=== PATIENT | female | born 1930 | race Caucasian/White ===

== ENCOUNTER 2017-11-07 13:17 | Inpatient (IN) | payer OTHER, SELFPAY ==
[~2017-11-07] VITALS: Ht 154.9 cm; Wt 47.6 kg
[~2017-11-07 13:17] MED LIST: ACYC800 PO; AMLO5 PO; ASPI81CH PO; ASPI81EC PO; Celebrex200 MG PO; DIAZ5 PO; DOCU100 PO; ESTR1 PO; GABA300 PO; HIGH BP MED; HYDACE10 PO; HYDACE10B PO; LISHYD1012 PO; LISHYD2012 PO; LISI5 PO; MAGOXI400 PO; METO25ER PO; MORP30ER PO; Norco 10-325 T1 EACH PO; OMEP20ER PO; ONDA4 PO; Prozac40 MG PO; ROSU10TA PO; ROSU5 PO; SENN187 PO; SODCHL1 PO; Xanax0.5 MG PO; ZOLP10 PO; Zithromax250 MG PO; Zofran Odt4 MG SL; Zofran4 MG PO
[2017-11-07 14:25] LABS: BASOPHILS ABSOLUTE AUTO 0.05 K/mm3 (0.00-0.23); BASOPHILS PERCENT AUTO 1 % (0-2); EOSINOPHILS ABSOLUTE AUTO 0.19 K/mm3 (0.00-0.68); EOSINOPHILS PERCENT AUTO 2 % (0-6); Hematocrit 38.4 % (33.0-51.0); Hemoglobin 12.7 g/dL (11.5-16.0); IMMATURE GRAN ABSOLUTE AUTO 0.04 K/mm3 (0.00-0.10); IMMATURE GRAN PERCENT AUTO 0 % (0-1); LYMPHOCYTES ABSOLUTE AUTO 3.74 K/mm3 (0.84-5.20); LYMPHOCYTES PERCENT AUTO 37 % (21-46); MONOCYTES PERCENT AUTO 9 % (4-13); Mean Corpuscular HGB 27.8 pg (26.0-34.0); Mean Corpuscular HGB Conc 33.1 g/dL (31.5-36.5); Mean Corpuscular Volume 84 fL (80-100); NEUTROPHILS ABSOLUTE AUTO 5.14 K/mm3 (1.96-9.15); NEUTROPHILS PERCENT AUTO 51 % (41-73); RDW Coefficient Variation 17.7 % (11.7-14.2); RDW Standard Deviation 54.2 fL (35.1-46.3); Red Blood Cell Count 4.57 M/mm3 (3.80-5.20); White Blood Cell Count 10.06 K/mm3 (4.00-11.30)
[2017-11-07 14:27] LABS: Mean Platelet Volume 10.6 fL (9.1-12.4); Platelet Count 313 K/mm3 (150-400)
[2017-11-07 14:31] LABS: Albumin, Blood 3.5 g/dL (3.4-5.0); Albumin/Globulin Ratio 0.9 (0.8-1.8); Bilirubin, Total 0.6 mg/dL (0.1-1.0); Bun/Creatinine Ratio 19.9 (12.0-20.0); Calcium, Blood 8.5 mg/dL (8.5-10.1); Creatinine, Blood 2.46 mg/dL (0.40-1.00); Globulin, Blood 3.8 g/dL (2.2-4.0); Potassium, Blood 3.4 mmol/L (3.5-5.5); Total Protein, Blood 7.3 g/dL (6.4-8.2)
[2017-11-07 14:54] LABS: Source, Urine Clean Catch
[2017-11-07 15:00] LABS: Bilirubin, Urine Neg (Neg); Blood, Urine 2+ (Neg); Glucose Qualitative, Urine Neg (Neg); Ketones, Urine Neg (Neg); Leukocyte Esterase, Urine 3+ (Neg); Nitrite, Urine Neg (Neg); Protein, Urine 3+ (Neg); Urobilinogen, Urine NORM (Normal)
[2017-11-07 15:06] LABS: Color, Urine Yellow (P-Yellow)
[2017-11-07 15:07] LABS: Appearance, Urine Hazy (Clear); White Blood Cells, Urine TNTC /hpf (0-5)
[2017-11-07 15:08] LABS: Bacteria Mod /hpf; Squamous Epithelial Cells Few /hpf (Few)
[2017-11-07 15:34] LABS: Influenza A Negative (NEGATIVE); Influenza B Negative (NEGATIVE)
[2017-11-08 05:47] LABS: BASOPHILS ABSOLUTE AUTO 0.05 K/mm3 (0.00-0.23); BASOPHILS PERCENT AUTO 1 % (0-2); EOSINOPHILS ABSOLUTE AUTO 0.57 K/mm3 (0.00-0.68); EOSINOPHILS PERCENT AUTO 8 % (0-6); Hematocrit 34.9 % (33.0-51.0); Hemoglobin 11.8 g/dL (11.5-16.0); IMMATURE GRAN ABSOLUTE AUTO 0.02 K/mm3 (0.00-0.10); IMMATURE GRAN PERCENT AUTO 0 % (0-1); LYMPHOCYTES ABSOLUTE AUTO 2.47 K/mm3 (0.84-5.20); LYMPHOCYTES PERCENT AUTO 36 % (21-46); MONOCYTES ABSOLUTE AUTO 0.56 K/mm3 (0.16-1.47); MONOCYTES PERCENT AUTO 8 % (4-13); Mean Corpuscular HGB 27.6 pg (26.0-34.0); Mean Corpuscular HGB Conc 33.8 g/dL (31.5-36.5); Mean Corpuscular Volume 82 fL (80-100); Mean Platelet Volume 10.2 fL (9.1-12.4); NEUTROPHILS ABSOLUTE AUTO 3.14 K/mm3 (1.96-9.15); NEUTROPHILS PERCENT AUTO 46 % (41-73); Platelet Count 316 K/mm3 (150-400); RDW Coefficient Variation 16.9 % (11.7-14.2); RDW Standard Deviation 49.9 fL (35.1-46.3); Red Blood Cell Count 4.28 M/mm3 (3.80-5.20); White Blood Cell Count 6.81 K/mm3 (4.00-11.30)
[2017-11-08 06:05] LABS: Alanine Aminotransfer (ALT/SGP 17 U/L (12-78); Albumin, Blood 2.9 g/dL (3.4-5.0); Albumin/Globulin Ratio 0.9 (0.8-1.8); Alk Phos 147 U/L (50-136); Anion Gap 9 mmol/L (6-16); Aspartate Aminotrans (AST/SGOT 19 U/L (12-37); Bilirubin, Total 0.3 mg/dL (0.1-1.0); Blood Urea Nitrogen 28 mg/dL (8-24); Bun/Creatinine Ratio 31.5 (12.0-20.0); CO2, Blood 29 mmol/L (21-32); Calcium, Blood 8.4 mg/dL (8.5-10.1); Chloride, Blood 94 mmol/L (98-108); Creatinine, Blood 0.89 mg/dL (0.40-1.00); Globulin, Blood 3.3 g/dL (2.2-4.0); Glomerular Filtration Rate >60 (60-); Glucose, Blood 88 mg/dL (70-99); Potassium, Blood 3.3 mmol/L (3.5-5.5); Sodium, Blood 132 mmol/L (136-145); Total Protein, Blood 6.2 g/dL (6.4-8.2)
[2017-11-09 05:49] LABS: Anion Gap 4 mmol/L (6-16); Blood Urea Nitrogen 16 mg/dL (8-24); Bun/Creatinine Ratio 29.7 (12.0-20.0); CO2, Blood 31 mmol/L (21-32); Calcium, Blood 8.3 mg/dL (8.5-10.1); Chloride, Blood 95 mmol/L (98-108); Creatinine, Blood 0.54 mg/dL (0.40-1.00); Glomerular Filtration Rate >60 (60-); Glucose, Blood 89 mg/dL (70-99); Potassium, Blood 4.3 mmol/L (3.5-5.5); Sodium, Blood 130 mmol/L (136-145)
[2017-11-10] MEDS ORDERED: ALPR.25 PO (11:05)
[2017-11-10] MEDS ORDERED: LOSA25 PO (11:12)
[2017-11-10] MEDS ORDERED: SACC250C PO (11:13)
[2017-11-10] MEDS ORDERED: Amoxicillin500 MG PO (11:15)
[2018-07-21] MEDS ORDERED: LISI5 PO (12:38)
[2018-07-21] MEDS ORDERED: OMEPRAZOLE MAGN20 MG PO (12:39)
[2018-07-21] MEDS ORDERED: GABA300 PO (12:39)
[2018-07-24] MEDS ORDERED: Amox Tr-K Clv1 EAC2 PO (11:47)
== END 2017-11-10 11:53 | disposition home or self-care (01) | DRG 682 ==
LOC: ER 13:17 → MEDS 17:06 → ENPENDDIS 11-10 09:45 → MEDS 11-10 11:53
PROVIDERS: Emergency Medicine; Internal Medicine; Nurse Practitioner Family
DX: N17.9 Acute kidney failure, unspecified (principal); J69.0 Pneumonitis due to inhalation of food and vomit; E46 Unspecified protein-calorie malnutrition; G93.41 Metabolic encephalopathy; E22.2 Syndrome of inappropriate secretion of antidiuretic hormone; F11.20 Opioid dependence, uncomplicated; B02.23 Postherpetic polyneuropathy; N39.0 Urinary tract infection, site not specified; Z68.1 Body mass index [BMI] 19.9 or less, adult; E86.0 Dehydration; D63.8 Anemia in other chronic diseases classified elsewhere; G89.29 Other chronic pain; M19.90 Unspecified osteoarthritis, unspecified site; I10 Essential (primary) hypertension; R32 Unspecified urinary incontinence; Z66 Do not resuscitate; F41.9 Anxiety disorder, unspecified; F32.9 Major depressive disorder, single episode, unspecified; E87.6 Hypokalemia; B95.2 Enterococcus as the cause of diseases classified elsewhere; F03.90 Unspecified dementia, unspecified severity, without behavioral disturbance, psychotic disturbance, mood disturbance, and anxiety; G89.4 Chronic pain syndrome; Z85.72 Personal history of non-Hodgkin lymphomas; Z96.659 Presence of unspecified artificial knee joint; Z79.899 Other long term (current) drug therapy
CPT/HCPCS: 36415; 51702; 71046; 80048; 80053; 81001; 85025; 87077; 87086; 87186; 87804; 92610; 96361; 96365; 96367; 99285; G8996; G8997; J0290; J0696; J1644; J1956; J7030; J7120

== ENCOUNTER 2017-12-08 12:04 | Inpatient (IN) | payer OTHER, SELFPAY ==
[~2017-12-08] VITALS: Ht 162.6 cm; Wt 40.8 kg
[~2017-12-08 12:04] MED LIST changes: +ALPR.25 PO; +Amoxicillin500 MG PO; +LOSA25 PO; +SACC250C PO
[2017-12-08 12:32] LABS: BASOPHILS ABSOLUTE AUTO 0.04 K/mm3 (0.00-0.23); BASOPHILS PERCENT AUTO 0 % (0-2); EOSINOPHILS ABSOLUTE AUTO 0.18 K/mm3 (0.00-0.68); EOSINOPHILS PERCENT AUTO 2 % (0-6); Hemoglobin 11.8 g/dL (11.5-16.0); IMMATURE GRAN ABSOLUTE AUTO 0.03 K/mm3 (0.00-0.10); IMMATURE GRAN PERCENT AUTO 0 % (0-1); LYMPHOCYTES ABSOLUTE AUTO 2.39 K/mm3 (0.84-5.20); LYMPHOCYTES PERCENT AUTO 21 % (21-46); MONOCYTES ABSOLUTE AUTO 0.89 K/mm3 (0.16-1.47); MONOCYTES PERCENT AUTO 8 % (4-13); Mean Corpuscular HGB 28.4 pg (26.0-34.0); Mean Corpuscular HGB Conc 33.7 g/dL (31.5-36.5); Mean Corpuscular Volume 84 fL (80-100); Mean Platelet Volume 9.8 fL (9.1-12.4); NEUTROPHILS PERCENT AUTO 69 % (41-73); Platelet Count 279 K/mm3 (150-400); RDW Coefficient Variation 16.4 % (11.7-14.2); RDW Standard Deviation 51.1 fL (35.1-46.3); Red Blood Cell Count 4.16 M/mm3 (3.80-5.20); White Blood Cell Count 11.33 K/mm3 (4.00-11.30)
[2017-12-08 12:44] LABS: International Normalized Ratio 1.02; Prothrombin Time Results 10.6 Sec (9.7-11.5)
[2017-12-08 12:45] LABS: Albumin, Blood 2.9 g/dL (3.4-5.0); Albumin/Globulin Ratio 0.7 (0.8-1.8); Bilirubin, Total 0.6 mg/dL (0.1-1.0); Bun/Creatinine Ratio 24.6 (12.0-20.0); Calcium, Blood 8.5 mg/dL (8.5-10.1); Creatinine, Blood 1.26 mg/dL (0.40-1.00); Potassium, Blood 3.4 mmol/L (3.5-5.5); Total Protein, Blood 6.9 g/dL (6.4-8.2)
[2017-12-08 17:21] LABS: Source, Urine Catheter
[2017-12-08 17:29] LABS: Appearance, Urine Clear (Clear); Bilirubin, Urine Neg (Neg); Blood, Urine Neg (Neg); Color, Urine Yellow (P-Yellow); Glucose Qualitative, Urine Neg (Neg); Ketones, Urine Neg (Neg); Leukocyte Esterase, Urine Neg (Neg); Nitrite, Urine Neg (Neg); Protein, Urine 2+ (Neg); Specific Gravity, Urine 1.015 (1.003-1.022); Urobilinogen, Urine NORM (Normal)
[2017-12-08 18:26] LABS: Red Blood Cells, Urine 0-2 /hpf (0-2); White Blood Cells, Urine 0-2 /hpf (0-5)
[2017-12-08 18:27] LABS: Bacteria Few /hpf; Hyaline Casts 0-2 /lpf (0-2); Squamous Epithelial Cells Rare /hpf (Few)
[2017-12-09 05:21] LABS: BASOPHILS ABSOLUTE AUTO 0.04 K/mm3 (0.00-0.23); BASOPHILS PERCENT AUTO 1 % (0-2); EOSINOPHILS ABSOLUTE AUTO 0.13 K/mm3 (0.00-0.68); EOSINOPHILS PERCENT AUTO 2 % (0-6); Hematocrit 32.2 % (33.0-51.0); Hemoglobin 10.7 g/dL (11.5-16.0); IMMATURE GRAN ABSOLUTE AUTO 0.04 K/mm3 (0.00-0.10); IMMATURE GRAN PERCENT AUTO 1 % (0-1); LYMPHOCYTES PERCENT AUTO 24 % (21-46); MONOCYTES ABSOLUTE AUTO 0.73 K/mm3 (0.16-1.47); MONOCYTES PERCENT AUTO 8 % (4-13); Mean Corpuscular HGB 28.3 pg (26.0-34.0); Mean Corpuscular HGB Conc 33.2 g/dL (31.5-36.5); Mean Corpuscular Volume 85 fL (80-100); Mean Platelet Volume 10.5 fL (9.1-12.4); NEUTROPHILS ABSOLUTE AUTO 5.83 K/mm3 (1.96-9.15); NEUTROPHILS PERCENT AUTO 66 % (41-73); Platelet Count 260 K/mm3 (150-400); RDW Standard Deviation 50.4 fL (35.1-46.3); Red Blood Cell Count 3.78 M/mm3 (3.80-5.20); White Blood Cell Count 8.87 K/mm3 (4.00-11.30)
[2017-12-09 05:52] LABS: Anion Gap 6 mmol/L (6-16); Blood Urea Nitrogen 22 mg/dL (8-24); Bun/Creatinine Ratio 32.5 (12.0-20.0); CO2, Blood 32 mmol/L (21-32); Calcium, Blood 8.6 mg/dL (8.5-10.1); Chloride, Blood 93 mmol/L (98-108); Creatinine, Blood 0.68 mg/dL (0.40-1.00); Glomerular Filtration Rate >60 (60-); Glucose, Blood 109 mg/dL (70-99); Potassium, Blood 3.5 mmol/L (3.5-5.5); Sodium, Blood 131 mmol/L (136-145)
[2017-12-10 04:26] LABS: BASOPHILS ABSOLUTE AUTO 0.01 K/mm3 (0.00-0.23); BASOPHILS PERCENT AUTO 0 % (0-2); EOSINOPHILS PERCENT AUTO 0 % (0-6); Hematocrit 28.2 % (33.0-51.0); Hemoglobin 9.3 g/dL (11.5-16.0); IMMATURE GRAN ABSOLUTE AUTO 0.03 K/mm3 (0.00-0.10); IMMATURE GRAN PERCENT AUTO 0 % (0-1); LYMPHOCYTES ABSOLUTE AUTO 1.87 K/mm3 (0.84-5.20); LYMPHOCYTES PERCENT AUTO 20 % (21-46); MONOCYTES ABSOLUTE AUTO 0.61 K/mm3 (0.16-1.47); MONOCYTES PERCENT AUTO 7 % (4-13); Mean Corpuscular HGB 28.4 pg (26.0-34.0); Mean Corpuscular Volume 86 fL (80-100); Mean Platelet Volume 9.7 fL (9.1-12.4); NEUTROPHILS ABSOLUTE AUTO 6.83 K/mm3 (1.96-9.15); NEUTROPHILS PERCENT AUTO 73 % (41-73); Platelet Count 244 K/mm3 (150-400); RDW Coefficient Variation 15.8 % (11.7-14.2); Red Blood Cell Count 3.27 M/mm3 (3.80-5.20); White Blood Cell Count 9.35 K/mm3 (4.00-11.30)
[2017-12-11 06:17] LABS: BASOPHILS ABSOLUTE AUTO 0.04 K/mm3 (0.00-0.23); BASOPHILS PERCENT AUTO 1 % (0-2); EOSINOPHILS ABSOLUTE AUTO 0.16 K/mm3 (0.00-0.68); EOSINOPHILS PERCENT AUTO 2 % (0-6); Hematocrit 26.6 % (33.0-51.0); IMMATURE GRAN ABSOLUTE AUTO 0.02 K/mm3 (0.00-0.10); IMMATURE GRAN PERCENT AUTO 0 % (0-1); LYMPHOCYTES ABSOLUTE AUTO 3.22 K/mm3 (0.84-5.20); LYMPHOCYTES PERCENT AUTO 43 % (21-46); MONOCYTES ABSOLUTE AUTO 0.68 K/mm3 (0.16-1.47); MONOCYTES PERCENT AUTO 9 % (4-13); Mean Corpuscular HGB 28.8 pg (26.0-34.0); Mean Corpuscular HGB Conc 33.8 g/dL (31.5-36.5); Mean Corpuscular Volume 85 fL (80-100); Mean Platelet Volume 9.7 fL (9.1-12.4); NEUTROPHILS ABSOLUTE AUTO 3.45 K/mm3 (1.96-9.15); NEUTROPHILS PERCENT AUTO 46 % (41-73); Platelet Count 274 K/mm3 (150-400); RDW Coefficient Variation 15.9 % (11.7-14.2); RDW Standard Deviation 49.7 fL (35.1-46.3); Red Blood Cell Count 3.12 M/mm3 (3.80-5.20); White Blood Cell Count 7.57 K/mm3 (4.00-11.30)
[2017-12-11 06:38] LABS: Anion Gap 6 mmol/L (6-16); Blood Urea Nitrogen 9 mg/dL (8-24); Bun/Creatinine Ratio 20.5 (12.0-20.0); CO2, Blood 31 mmol/L (21-32); Calcium, Blood 8.7 mg/dL (8.5-10.1); Chloride, Blood 94 mmol/L (98-108); Creatinine, Blood 0.44 mg/dL (0.40-1.00); Glomerular Filtration Rate >60 (60-); Glucose, Blood 91 mg/dL (70-99); Potassium, Blood 4.3 mmol/L (3.5-5.5); Sodium, Blood 131 mmol/L (136-145)
[2017-12-11] MEDS ORDERED: MORP30 PO (09:20)
[2017-12-11] MEDS ORDERED: MORP20L PO (09:22)
[2018-07-21] MEDS ORDERED: LISI5 PO (12:38)
[2018-07-21] MEDS ORDERED: GABA300 PO (12:39)
[2018-07-21] MEDS ORDERED: OMEPRAZOLE MAGN20 MG PO (12:39)
[2018-07-24] MEDS ORDERED: Amox Tr-K Clv1 EAC2 PO (11:47)
== END 2017-12-14 11:34 | DRG 480 ==
LOC: ER 12:04 → SURS 14:06
PROVIDERS: Internal Medicine; Orthopaedic Surgery
PROC: BQ14ZZZ Fluoroscopy of Left Femur (ICD-10-PCS; 2017-12-09)
PROC: 0QH704Z Insertion of Internal Fixation Device into Left Upper Femur, Open Approach (ICD-10-PCS; principal; 2017-12-09 07:15)
DX: S72.142A Displaced intertrochanteric fracture of left femur, initial encounter for closed fracture (principal); E43 Unspecified severe protein-calorie malnutrition; N17.9 Acute kidney failure, unspecified; E86.0 Dehydration; D64.9 Anemia, unspecified; F11.20 Opioid dependence, uncomplicated; E87.1 Hypo-osmolality and hyponatremia; Z68.1 Body mass index [BMI] 19.9 or less, adult; E87.6 Hypokalemia; W19.XXXA Unspecified fall, initial encounter; G89.4 Chronic pain syndrome; I10 Essential (primary) hypertension; F32.9 Major depressive disorder, single episode, unspecified; Z66 Do not resuscitate; M19.90 Unspecified osteoarthritis, unspecified site; E78.5 Hyperlipidemia, unspecified; Z79.899 Other long term (current) drug therapy; Z85.72 Personal history of non-Hodgkin lymphomas
CPT/HCPCS: 36415; 71045; 73502; 80048; 80053; 81001; 85025; 85610; 93005; 93010; 96361; 96374; 96375; 96376; 97110; 97116; 97163; 97165; 97530; 97535; 99285; C1713; C1769; G8978; G8979; G8987; G8988; J0690; J1100; J1170; J1650; J2370; J2405; J3010; J3480; J7030

== ENCOUNTER → 2019-12-04 | Outpatient (CLI) | payer OTHER ==
[~2019-12-04] MED LIST changes: +Amox Tr-K Clv1 EAC2 PO; +MORP20L PO; +MORP30 PO; +OMEPRAZOLE MAGN20 MG PO
== END | disposition home or self-care (01) ==
LOC: LAB 14:00 → LAB SHORT 14:00
DX: N39.0 Urinary tract infection, site not specified (principal)
CPT/HCPCS: 87077; 87086; 87186

== ENCOUNTER 2020-04-17 14:26 | Emergency (ER) | payer OTHER ==
[~2020-04-17] VITALS: Ht 162.6 cm; Wt 59.0 kg
[~2020-04-17 14:26] MED LIST changes: -METO25ER PO; -MORP30 PO
[2020-04-17 15:04] LABS: Source, Urine Voided
[2020-04-17 15:08] LABS: BASOPHILS ABSOLUTE AUTO 0.04 K/mm3 (0.00-0.23); BASOPHILS PERCENT AUTO 0 % (0-2); EOSINOPHILS ABSOLUTE AUTO 0.71 K/mm3 (0.00-0.68); EOSINOPHILS PERCENT AUTO 7 % (0-6); Hematocrit 41.3 % (33.0-51.0); Hemoglobin 13.2 g/dL (11.5-16.0); IMMATURE GRAN ABSOLUTE AUTO 0.03 K/mm3 (0.00-0.10); IMMATURE GRAN PERCENT AUTO 0 % (0-1); LYMPHOCYTES ABSOLUTE AUTO 6.16 K/mm3 (0.84-5.20); LYMPHOCYTES PERCENT AUTO 58 % (21-46); MONOCYTES ABSOLUTE AUTO 0.55 K/mm3 (0.16-1.47); MONOCYTES PERCENT AUTO 5 % (4-13); Mean Corpuscular HGB 27.3 pg (26.0-34.0); Mean Corpuscular Volume 86 fL (80-100); Mean Platelet Volume 10.7 fL (9.1-12.4); NEUTROPHILS ABSOLUTE AUTO 3.13 K/mm3 (1.96-9.15); NEUTROPHILS PERCENT AUTO 29 % (41-73); Platelet Count 354 K/mm3 (150-400); RDW Coefficient Variation 15.2 % (11.7-14.2); RDW Standard Deviation 48.3 fL (35.1-46.3); Red Blood Cell Count 4.83 M/mm3 (3.80-5.20); White Blood Cell Count 10.62 K/mm3 (4.00-11.30)
[2020-04-17 15:16] LABS: Appearance, Urine Clear (Clear); Bilirubin, Urine Neg (Neg); Blood, Urine Neg (Neg); Color, Urine Yellow (P-Yellow); Glucose Qualitative, Urine Neg (Neg); Ketones, Urine 1+ (Neg); Leukocyte Esterase, Urine Neg (Neg); Nitrite, Urine Neg (Neg); Protein, Urine 3+ (Neg); Urobilinogen, Urine NORM (Normal)
[2020-04-17 15:23] LABS: Alanine Aminotransfer (ALT/SGP 20 U/L (12-78); Albumin, Blood 3.3 g/dL (3.4-5.0); Albumin/Globulin Ratio 0.6 (0.8-1.8); Alk Phos 99 U/L (50-136); Anion Gap 9 mmol/L (6-16); Aspartate Aminotrans (AST/SGOT 51 U/L (12-37); Bilirubin, Total 0.5 mg/dL (0.1-1.0); Blood Urea Nitrogen 11 mg/dL (8-24); Bun/Creatinine Ratio 22.2 (12.0-20.0); CO2, Blood 25 mmol/L (21-32); Calcium, Blood 8.7 mg/dL (8.5-10.1); Chloride, Blood 98 mmol/L (98-108); Globulin, Blood 5.3 g/dL (2.2-4.0); Glomerular Filtration Rate >60 (60-); Glucose, Blood 156 mg/dL (70-99); Potassium, Blood 4.1 mmol/L (3.5-5.5); Sodium, Blood 132 mmol/L (136-145); Total Protein, Blood 8.6 g/dL (6.4-8.2)
[2020-04-17 15:28] LABS: Bacteria Rare /hpf; Red Blood Cells, Urine 0-2 /hpf (0-2); Squamous Epithelial Cells Rare /hpf (Few); White Blood Cells, Urine 0-2 /hpf (0-5)
[2020-04-17] MEDS ORDERED: SODCHL1 PO (16:52)
[2020-04-17] MEDS ORDERED: LISINOPRIL-HCT1 EACH PO (16:54)
[2020-04-17] MEDS ORDERED: TIZANIDINE HCL2 M1 PO (16:55)
[2020-04-17] MEDS ORDERED: POTCHL20ER PO (16:55)
[2020-04-17] MEDS ORDERED: MORPHINE SULFAT15 M1 PO (16:56)
[2020-04-17] MEDS ORDERED: METO50ER PO (17:43)
[2020-04-17] MEDS ORDERED: SLOW I PO (17:44)
[2020-04-17 20:35] LABS: International Normalized Ratio 0.96; Prothrombin Time Results 10.3 Sec (9.7-11.5)
[2020-05-01] MEDS ORDERED: SULFAMETHOXAZO1 EAC1 PO (16:25)
== END 2020-04-17 21:02 | disposition short-term general hospital (02) ==
LOC: ER 14:26
PROVIDERS: Emergency Medicine
DX: S06.379A Contusion, laceration, and hemorrhage of cerebellum with loss of consciousness of unspecified duration, initial encounter (principal); S01.81XA Laceration without foreign body of other part of head, initial encounter; Z20.828 Contact with and (suspected) exposure to other viral communicable diseases; I10 Essential (primary) hypertension; E78.00 Pure hypercholesterolemia, unspecified; Z79.899 Other long term (current) drug therapy; X58.XXXA Exposure to other specified factors, initial encounter
CPT/HCPCS: 51701; 70450; 70496; 70498; 74176; 80053; 81001; 83690; 85025; 85610; 85730; 93005; 93010; 96365-59; 96366-59; 96375-59; 99285-25; J2405; J7050; Q9967; U0002

== ENCOUNTER → 2020-04-28 | Outpatient (CLI) | payer OTHER ==
[~2020-04-28] MED LIST changes: +LISINOPRIL-HCT1 EACH PO; +METO50ER PO; +MORPHINE SULFAT15 M1 PO; +POTCHL20ER PO; +SLOW I PO; +SULFAMETHOXAZO1 EAC1 PO; +TIZANIDINE HCL2 M1 PO
== END | disposition home or self-care (01) ==
LOC: LAB SHORT 17:26 → LAB 17:26
DX: R30.0 Dysuria (principal); R35.0 Frequency of micturition
CPT/HCPCS: 87077; 87086; 87186

== ENCOUNTER 2020-08-20 19:19 | Emergency (ER) | payer OTHER ==
[~2020-08-20] VITALS: Ht 152.4 cm; Wt 49.0 kg
[2020-08-20 20:26] LABS: BASOPHILS ABSOLUTE AUTO 0.03 K/mm3 (0.00-0.23); BASOPHILS PERCENT AUTO 0 % (0-2); EOSINOPHILS ABSOLUTE AUTO 0.05 K/mm3 (0.00-0.68); EOSINOPHILS PERCENT AUTO 0 % (0-6); Hematocrit 40.5 % (33.0-51.0); Hemoglobin 13.4 g/dL (11.5-16.0); IMMATURE GRAN ABSOLUTE AUTO 0.03 K/mm3 (0.00-0.10); IMMATURE GRAN PERCENT AUTO 0 % (0-1); LYMPHOCYTES ABSOLUTE AUTO 2.85 K/mm3 (0.84-5.20); LYMPHOCYTES PERCENT AUTO 25 % (21-46); MONOCYTES ABSOLUTE AUTO 0.63 K/mm3 (0.16-1.47); MONOCYTES PERCENT AUTO 6 % (4-13); Mean Corpuscular HGB 27.9 pg (26.0-34.0); Mean Corpuscular HGB Conc 33.1 g/dL (31.5-36.5); Mean Corpuscular Volume 84 fL (80-100); Mean Platelet Volume 10.1 fL (9.1-12.4); NEUTROPHILS ABSOLUTE AUTO 7.74 K/mm3 (1.96-9.15); NEUTROPHILS PERCENT AUTO 68 % (41-73); Platelet Count 409 K/mm3 (150-400); RDW Coefficient Variation 14.4 % (11.7-14.2); RDW Standard Deviation 44.6 fL (35.1-46.3); White Blood Cell Count 11.33 K/mm3 (4.00-11.30)
[2020-08-20 20:47] LABS: Alanine Aminotransfer (ALT/SGP 12 U/L (12-78); Albumin, Blood 3.6 g/dL (3.4-5.0); Albumin/Globulin Ratio 0.7 (0.8-1.8); Alk Phos 99 U/L (50-136); Anion Gap 5 mmol/L (6-16); Aspartate Aminotrans (AST/SGOT 17 U/L (12-37); Bilirubin, Total 0.3 mg/dL (0.1-1.0); Blood Urea Nitrogen 16 mg/dL (8-24); Bun/Creatinine Ratio 29.2 (12.0-20.0); CO2, Blood 30 mmol/L (21-32); Calcium, Blood 9.6 mg/dL (8.5-10.1); Chloride, Blood 99 mmol/L (98-108); Creatinine, Blood 0.55 mg/dL (0.40-1.00); Globulin, Blood 5.1 g/dL (2.2-4.0); Glomerular Filtration Rate >60 (60-); Glucose, Blood 121 mg/dL (70-99); Potassium, Blood 3.7 mmol/L (3.5-5.5); Sodium, Blood 134 mmol/L (136-145); Total Protein, Blood 8.7 g/dL (6.4-8.2); Troponin I <0.015 ng/mL (0.000-0.040)
[2020-08-20 23:02] LABS: Source, Urine Clean Catch
[2020-08-20 23:06] LABS: Bilirubin, Urine Neg (Neg); Blood, Urine 2+ (Neg); Glucose Qualitative, Urine Neg (Neg); Ketones, Urine Neg (Neg); Leukocyte Esterase, Urine 1+ (Neg); Nitrite, Urine Neg (Neg); Protein, Urine 3+ (Neg); Urobilinogen, Urine NORM (Normal)
[2020-08-20 23:21] LABS: Appearance, Urine Clear (Clear); Color, Urine Yellow (P-Yellow)
[2020-08-20 23:22] LABS: Bacteria Few /hpf; Squamous Epithelial Cells Rare /hpf (Few)
[2020-08-21] MEDS ORDERED: CEPH500 PO (01:47)
== END 2020-08-21 00:29 | disposition left against medical advice (07) ==
LOC: ER 19:19
PROVIDERS: Physician Assistant
DX: N39.0 Urinary tract infection, site not specified (principal); I10 Essential (primary) hypertension; E78.00 Pure hypercholesterolemia, unspecified; Z79.899 Other long term (current) drug therapy; Z96.651 Presence of right artificial knee joint
CPT/HCPCS: 36415; 71046; 80053; 81001; 84484; 85025; 93005; 93010; 99283-25; A9270-GY

== ENCOUNTER 2020-08-22 19:24 | Emergency (ER) | payer OTHER ==
[~2020-08-22] VITALS: Ht 162.6 cm; Wt 45.4 kg
[~2020-08-22 19:24] MED LIST changes: +CEPH500 PO
[2020-08-22 20:19] LABS: BASOPHILS ABSOLUTE AUTO 0.03 K/mm3 (0.00-0.23); BASOPHILS PERCENT AUTO 0 % (0-2); EOSINOPHILS ABSOLUTE AUTO 0.09 K/mm3 (0.00-0.68); EOSINOPHILS PERCENT AUTO 1 % (0-6); Hemoglobin 13.4 g/dL (11.5-16.0); IMMATURE GRAN ABSOLUTE AUTO 0.02 K/mm3 (0.00-0.10); IMMATURE GRAN PERCENT AUTO 0 % (0-1); LYMPHOCYTES ABSOLUTE AUTO 3.26 K/mm3 (0.84-5.20); LYMPHOCYTES PERCENT AUTO 36 % (21-46); MONOCYTES PERCENT AUTO 7 % (4-13); Mean Corpuscular HGB 28.2 pg (26.0-34.0); Mean Corpuscular HGB Conc 33.5 g/dL (31.5-36.5); Mean Corpuscular Volume 84 fL (80-100); NEUTROPHILS ABSOLUTE AUTO 5.16 K/mm3 (1.96-9.15); NEUTROPHILS PERCENT AUTO 56 % (41-73); Platelet Count 441 K/mm3 (150-400); RDW Coefficient Variation 14.1 % (11.7-14.2); RDW Standard Deviation 43.5 fL (35.1-46.3); Red Blood Cell Count 4.76 M/mm3 (3.80-5.20); White Blood Cell Count 9.16 K/mm3 (4.00-11.30)
[2020-08-22 20:36] LABS: Alanine Aminotransfer (ALT/SGP 13 U/L (12-78); Albumin, Blood 3.5 g/dL (3.4-5.0); Albumin/Globulin Ratio 0.7 (0.8-1.8); Alk Phos 98 U/L (50-136); Anion Gap 9 mmol/L (6-16); Aspartate Aminotrans (AST/SGOT 19 U/L (12-37); Bilirubin, Total 0.3 mg/dL (0.1-1.0); Blood Urea Nitrogen 16 mg/dL (8-24); Bun/Creatinine Ratio 29.9 (12.0-20.0); CO2, Blood 28 mmol/L (21-32); Calcium, Blood 9.3 mg/dL (8.5-10.1); Chloride, Blood 91 mmol/L (98-108); Creatinine, Blood 0.54 mg/dL (0.40-1.00); Globulin, Blood 5.1 g/dL (2.2-4.0); Glomerular Filtration Rate >60 (60-); Glucose, Blood 138 mg/dL (70-99); Potassium, Blood 3.6 mmol/L (3.5-5.5); Sodium, Blood 128 mmol/L (136-145); Total Protein, Blood 8.6 g/dL (6.4-8.2)
[2020-08-23 01:25] LABS: Source, Urine Clean Catch
[2020-08-23 01:27] LABS: Bilirubin, Urine Neg (Neg); Blood, Urine 1+ (Neg); Glucose Qualitative, Urine Neg (Neg); Ketones, Urine Neg (Neg); Leukocyte Esterase, Urine Neg (Neg); Nitrite, Urine Neg (Neg); Protein, Urine 3+ (Neg); Specific Gravity, Urine 1.015 (1.003-1.022); Urobilinogen, Urine NORM (Normal)
[2020-08-23 01:29] LABS: Appearance, Urine Clear (Clear); Color, Urine Yellow (P-Yellow)
[2020-08-23 01:32] LABS: Bacteria Not Seen /hpf; Red Blood Cells, Urine 0-2 /hpf (0-2); Squamous Epithelial Cells Not Seen /hpf (Few); White Blood Cells, Urine 0-2 /hpf (0-5)
[2020-08-23 02:08] LABS: Magnesium, Blood 1.6 mg/dL (1.6-2.4); Troponin I <0.015 ng/mL (0.000-0.040)
== END 2020-08-23 02:52 | disposition home or self-care (01) ==
LOC: ER 19:24
PROVIDERS: Emergency Medicine
DX: I10 Essential (primary) hypertension (principal); E78.00 Pure hypercholesterolemia, unspecified; Z86.73 Personal history of transient ischemic attack (TIA), and cerebral infarction without residual deficits; Z79.899 Other long term (current) drug therapy
CPT/HCPCS: 36415; 71046; 80053; 81001; 83690; 83735; 84484; 85025; 93005; 93010; 99284-25

== ENCOUNTER 2020-09-23 11:50 | Inpatient (IN) | payer OTHER ==
[~2020-09-23] VITALS: Ht 157.5 cm; Wt 42.0 kg
[2020-09-23 13:07] LABS: Source, Urine Catheter
[2020-09-23 13:07] LABS: BASOPHILS ABSOLUTE AUTO 0.02 K/mm3 (0.00-0.23); BASOPHILS PERCENT AUTO 0 % (0-2); EOSINOPHILS ABSOLUTE AUTO 0.01 K/mm3 (0.00-0.68); EOSINOPHILS PERCENT AUTO 0 % (0-6); Hematocrit 42.6 % (33.0-51.0); Hemoglobin 14.1 g/dL (11.5-16.0); IMMATURE GRAN ABSOLUTE AUTO 0.05 K/mm3 (0.00-0.10); IMMATURE GRAN PERCENT AUTO 0 % (0-1); LYMPHOCYTES ABSOLUTE AUTO 2.04 K/mm3 (0.84-5.20); LYMPHOCYTES PERCENT AUTO 17 % (21-46); MONOCYTES ABSOLUTE AUTO 0.35 K/mm3 (0.16-1.47); MONOCYTES PERCENT AUTO 3 % (4-13); Mean Corpuscular HGB 28.5 pg (26.0-34.0); Mean Corpuscular HGB Conc 33.1 g/dL (31.5-36.5); Mean Corpuscular Volume 86 fL (80-100); Mean Platelet Volume 10.3 fL (9.1-12.4); NEUTROPHILS ABSOLUTE AUTO 9.67 K/mm3 (1.96-9.15); NEUTROPHILS PERCENT AUTO 80 % (41-73); Platelet Count 654 K/mm3 (150-400); RDW Coefficient Variation 17.4 % (11.7-14.2); RDW Standard Deviation 53.7 fL (35.1-46.3); Red Blood Cell Count 4.95 M/mm3 (3.80-5.20); White Blood Cell Count 12.14 K/mm3 (4.00-11.30)
[2020-09-23 13:15] LABS: Appearance, Urine Clear (Clear); Bilirubin, Urine Neg (Neg); Blood, Urine 2+ (Neg); Color, Urine Yellow (P-Yellow); Glucose Qualitative, Urine 2+ (Neg); Ketones, Urine 3+ (Neg); Leukocyte Esterase, Urine Neg (Neg); Nitrite, Urine Neg (Neg); Protein, Urine 3+ (Neg); Specific Gravity, Urine 1.025 (1.003-1.022); Urobilinogen, Urine NORM (Normal)
[2020-09-23] MEDS ORDERED: METO50ER PO (13:18)
[2020-09-23] MEDS ORDERED: SODCHL1 PO (13:18)
[2020-09-23] MEDS ORDERED: LISINOPRIL-HCT1 EACH PO (13:20)
[2020-09-23] MEDS ORDERED: Potassium Chlo20 ME1 PO (13:20)
[2020-09-23] MEDS ORDERED: FEROSUL325 M1 PO (13:20)
[2020-09-23] MEDS ORDERED: TIZANIDINE HCL2 M4 PO (13:23)
[2020-09-23 13:34] LABS: Alanine Aminotransfer (ALT/SGP 15 U/L (12-78); Albumin, Blood 3.1 g/dL (3.4-5.0); Albumin/Globulin Ratio 0.6 (0.8-1.8); Alk Phos 207 U/L (50-136); Anion Gap 12 mmol/L (6-16); Aspartate Aminotrans (AST/SGOT 29 U/L (12-37); Bilirubin, Total 0.5 mg/dL (0.1-1.0); Blood Urea Nitrogen 14 mg/dL (8-24); Bun/Creatinine Ratio 28.2 (12.0-20.0); CO2, Blood 25 mmol/L (21-32); Chloride, Blood 97 mmol/L (98-108); Globulin, Blood 5.4 g/dL (2.2-4.0); Glomerular Filtration Rate >60 (60-); Glucose, Blood 157 mg/dL (70-99); Potassium, Blood 3.4 mmol/L (3.5-5.5); Sodium, Blood 134 mmol/L (136-145); Total Protein, Blood 8.5 g/dL (6.4-8.2)
[2020-09-23 13:38] LABS: Bacteria Few /hpf; Squamous Epithelial Cells Few /hpf (Few); White Blood Cells, Urine 0-2 /hpf (0-5)
[2020-09-23 15:56] LABS: Influenza A, PCR Negative (NEGATIVE); Influenza B, PCR Negative (NEGATIVE); Resp Syncytial Virus, PCR Negative (NEGATIVE); SARS-Cov-2 (COVID-19) PCR, MMC Negative (NEGATIVE)
[2020-09-23 17:11] LABS: Hematocrit 38.2 % (33.0-51.0); Hemoglobin 12.7 g/dL (11.5-16.0)
[2020-09-23] MEDS ORDERED: MORP15ER PO (19:23)
[2020-09-23] MEDS ORDERED: CARBONYL IRON45 MG PO (19:28)
[2020-09-23] MEDS ORDERED: ONDA4ODT MM (19:30)
[2020-09-23] MEDS ORDERED: ACET325 PO (19:35)
[2020-09-23] MEDS ORDERED: MIRALAX17 GM PO (19:36)
[2020-09-24 04:55] LABS: BASOPHILS ABSOLUTE AUTO 0.02 K/mm3 (0.00-0.23); BASOPHILS PERCENT AUTO 0 % (0-2); EOSINOPHILS PERCENT AUTO 0 % (0-6); Hematocrit 40.2 % (33.0-51.0); IMMATURE GRAN ABSOLUTE AUTO 0.05 K/mm3 (0.00-0.10); IMMATURE GRAN PERCENT AUTO 1 % (0-1); LYMPHOCYTES ABSOLUTE AUTO 2.85 K/mm3 (0.84-5.20); LYMPHOCYTES PERCENT AUTO 27 % (21-46); MONOCYTES ABSOLUTE AUTO 0.56 K/mm3 (0.16-1.47); MONOCYTES PERCENT AUTO 5 % (4-13); Mean Corpuscular HGB Conc 32.3 g/dL (31.5-36.5); Mean Corpuscular Volume 87 fL (80-100); Mean Platelet Volume 10.1 fL (9.1-12.4); NEUTROPHILS ABSOLUTE AUTO 7.27 K/mm3 (1.96-9.15); NEUTROPHILS PERCENT AUTO 68 % (41-73); Platelet Count 627 K/mm3 (150-400); RDW Coefficient Variation 17.8 % (11.7-14.2); RDW Standard Deviation 53.8 fL (35.1-46.3); Red Blood Cell Count 4.65 M/mm3 (3.80-5.20); White Blood Cell Count 10.75 K/mm3 (4.00-11.30)
[2020-09-24 05:21] LABS: Anion Gap 11 mmol/L (6-16); Blood Urea Nitrogen 5 mg/dL (8-24); Bun/Creatinine Ratio 10.4 (12.0-20.0); CO2, Blood 25 mmol/L (21-32); Calcium, Blood 9.3 mg/dL (8.5-10.1); Chloride, Blood 102 mmol/L (98-108); Creatinine, Blood 0.48 mg/dL (0.40-1.00); Glomerular Filtration Rate >60 (60-); Glucose, Blood 112 mg/dL (70-99); Potassium, Blood 3.4 mmol/L (3.5-5.5); Sodium, Blood 138 mmol/L (136-145)
--- NOTE | 2020-09-24 05:24 | NUR ---
SUMMARY PT ARRIVED TO FLOOR IN NO DISTRESS. PT WEAK AND IS HARD OF HEARING. PT IS LETHARGIC UPON ARRIVAL TO FLOOR. PT NIECE, PAT, IN ATTENDANCE. PT HAD A NOTED LOOSE BLACK STOOL AND BROWN EMESIS. PT BECAME MORE ALERT T/O SHIFT. PT CURRENTLY AWAKE AND BREATHING EASY. CALL LIGHT IN REACH AND BED ALARM ON.
[2020-09-24 11:15] LABS: Stool Occult Bld Immuno 1 Positive (NEGATIVE)
[2020-09-24 12:32] LABS: BASOPHILS ABSOLUTE AUTO 0.02 K/mm3 (0.00-0.23); BASOPHILS PERCENT AUTO 0 % (0-2); EOSINOPHILS PERCENT AUTO 0 % (0-6); Hematocrit 36.6 % (33.0-51.0); Hemoglobin 12.2 g/dL (11.5-16.0); IMMATURE GRAN ABSOLUTE AUTO 0.02 K/mm3 (0.00-0.10); IMMATURE GRAN PERCENT AUTO 0 % (0-1); LYMPHOCYTES ABSOLUTE AUTO 2.25 K/mm3 (0.84-5.20); LYMPHOCYTES PERCENT AUTO 24 % (21-46); MONOCYTES ABSOLUTE AUTO 0.74 K/mm3 (0.16-1.47); MONOCYTES PERCENT AUTO 8 % (4-13); Mean Corpuscular HGB 28.4 pg (26.0-34.0); Mean Corpuscular HGB Conc 33.3 g/dL (31.5-36.5); Mean Corpuscular Volume 85 fL (80-100); Mean Platelet Volume 9.4 fL (9.1-12.4); NEUTROPHILS ABSOLUTE AUTO 6.38 K/mm3 (1.96-9.15); NEUTROPHILS PERCENT AUTO 68 % (41-73); Platelet Count 528 K/mm3 (150-400); RDW Coefficient Variation 17.2 % (11.7-14.2); White Blood Cell Count 9.41 K/mm3 (4.00-11.30)
[2020-09-24 12:50] LABS: Anion Gap 9 mmol/L (6-16); Blood Urea Nitrogen 6 mg/dL (8-24); Bun/Creatinine Ratio 9.4 (12.0-20.0); CO2, Blood 25 mmol/L (21-32); Calcium, Blood 9.1 mg/dL (8.5-10.1); Chloride, Blood 101 mmol/L (98-108); Creatinine, Blood 0.64 mg/dL (0.40-1.00); Glomerular Filtration Rate >60 (60-); Glucose, Blood 290 mg/dL (70-99); Potassium, Blood 3.1 mmol/L (3.5-5.5); Sodium, Blood 135 mmol/L (136-145)
--- NOTE | 2020-09-24 15:52 | NUR ---
Clinical Visit: Pt is resting quietly in bed with her eyes closed - appears to be sleeping. She is arousable to touch and verbal stimuli. She is able to tell me that she is at [facility]. She doesn't know how long she has been here. Pt does not answer when asked what the date is or the year is. She reports extreme pain in her back, poor appetite. She states that she fell recently - she isn't sure how long ago. She reports that she is "tired all the time." Pt appears to be very limited on energy - she is speaking with much effort and not speaking with any force: Her voice comes out as a whisper dispite taxing effort. Reviewed swallow eval. She remembers someone telling her she cannot eat food right now. She is stating at this time that she would not want a tube in her abd to feed her if she is permanently unable to swallow food or drinks. Reviewed with Dr. Capellan and nurse, Nilda. Nilda expresses that the pt will have to have a pain medication available to her that is not PO. Dr. Capellan ok with roxanol order 5-10mg q 4 hours PRN for pain or air hunger. Called and left message for pt's neice and decision maker, Yun. Requested a call back to palliative care office to review plan of care and to offer her hospice and comfort care for the patient. Hospice diagnosis: Dementia PPS: 20% KPS: 20% FAST: 6e Pt showing signs of end of life. She is sleeping more, no appetite with weight loss - unintentional, - withdrawal from friends and family, falls, increased pain, severe fatigue, unable to swallow safely. All of this was noticed by family members over the last 5 weeks and has progressively gotten worse. Risk for readmission if discharged without hospice plan.
--- NOTE | 2020-09-24 18:20 | NUR ---
SHIFT SUMMARY PT AWAKE DURING SHIFT REPORT, JUST HAVING LRG BM; PT INCONTINENT OF BOWEL AND BLADDER. PT ADMITTED FOR CONSTIPATION, STARTING TO RESOLVE. PT TAKING PO MEDS CRUSHED IN APPLESAUCE. PT C/O NEEDING SOMETHING TO DRINK. PT SITTING UPRIGHT AND GIVEN THICKENED JUICE. PT COUGHING AFTER EACH PO INTAKE. DR JUNIOR TO TO SEE PT. NEW ORDERS PLACED. DR JUNIOR INFORMED OF NEEDED SP EVAL. PT'S NORMA CALLED FOR UPDATE ON PT; RETURNED CALL AND GIVEN UPDATE. NEJEN/CAREGIVER REPORTED THAT PT HAS BEEN COUGHING ALOT FOR A LONG TIME. NEJEN ALSO REPORTED THAT SHE HAS BEEN THICKENING PT'S JUICE AT HOME WELL, BUT NO RATIONAL GIVEN. NORMA REPORTED PT DRINKS DR PEPPER FROM A [facility] DAILY; NO THICKENING. NEJEN ALSO REPORTED THAT PT HELPS HERSELF TO HER MEDICATIONS AT HOME, HAVING POCKETS FULL OF THEM FREQUENTLY. PT ALSO HAS ACCESS TO HER MORPHINE, WHICH SHE TOOK MORE THAN SCHEDULED DOSE PRIOR TO ADMISSION CAUSING SEDATION. NORMA ALSO REPORTED PT HAS BEEN DECLINING FOR AT LEAST THE PAST 5 WEEKS. SP EVAL DONE TODAY; PT FAILED, COUGHING THRU ALL OF IT. PT TOLD SP TX THAT SHE WANTED TO . PALLIATIVE CARE CONSULT PLACED. PT REPORTED TO P/C THAT SHE DID NOT WANT A FEEDING TUBE, EVEN THOUGH SHE IS UNABLE TO TOLERATE PO INTAKE. DR STACK ALSO HERE TO SEE PT AND UPDATED ON STATUS. P/C RN ATTEMPTED TO CONTACT PT'S ELIZABETH GREEN, BUT UNABLE TO DO SO WHEN HERE. P/C RN TO F/U WITH LMJEN TO DISCUSS PT'S WISHES TO BE MADE C/C. IVF'S STARTED TODAY. IV KCL GIVEN WELL. SL ROXANOL ORDERED FOR PAIN MEDICATION AND GIVEN PER EMAR. PT RESTING QUIETLY AT THIS TIME. PT WANTING TO EAT AND DRINK, BUT EXPLAINED NPO STATUS AT THIS TIME. CALL LT IN REACH.
--- NOTE | 2020-09-25 03:21 | NUR ---
0320 TELE NOTIFIED OF PT HAVING ST IN 170'S FOR SHORT PERIOD FOLLOWED BY ST IN 120'S SUSTAINED. DR ALSTON CALLED AND HE ORDERED OT DOSE OF IV LOPRESSOR. WCTM
--- NOTE | 2020-09-25 04:45 | NUR ---
SUMMARY PT HAS REMAINED NPO W/ FREQUENT ORAL CARE FOR DRY MOUTH. PT HAS BEEN TX FOR ABD PAIN PER EMAR. PT HAD NO NOTED BM'S. PT HAD NO VOMITING. PT DID HAVE REPORTED ST IN 170'S AND SUSTAINED IN 120'S. PROVIDER CALLED AND OT DOSE OF LOPRESSOR WAS ORDERED W/ REDUCED RATE. PT HAS BEEN SLEEPING OFF AND ON T/O SHIFT. PT CURRENTLY SLEEPING AND BREATHING EASY. CALL LIGHT IN REACH AND BED ALARM ON.
[2020-09-25 04:57] LABS: BASOPHILS ABSOLUTE AUTO 0.02 K/mm3 (0.00-0.23); BASOPHILS PERCENT AUTO 0 % (0-2); EOSINOPHILS PERCENT AUTO 0 % (0-6); Hematocrit 34.2 % (33.0-51.0); Hemoglobin 11.5 g/dL (11.5-16.0); IMMATURE GRAN ABSOLUTE AUTO 0.03 K/mm3 (0.00-0.10); IMMATURE GRAN PERCENT AUTO 0 % (0-1); LYMPHOCYTES ABSOLUTE AUTO 2.68 K/mm3 (0.84-5.20); LYMPHOCYTES PERCENT AUTO 35 % (21-46); MONOCYTES ABSOLUTE AUTO 0.68 K/mm3 (0.16-1.47); MONOCYTES PERCENT AUTO 9 % (4-13); Mean Corpuscular HGB 28.6 pg (26.0-34.0); Mean Corpuscular HGB Conc 33.6 g/dL (31.5-36.5); Mean Corpuscular Volume 85 fL (80-100); Mean Platelet Volume 9.9 fL (9.1-12.4); NEUTROPHILS ABSOLUTE AUTO 4.19 K/mm3 (1.96-9.15); NEUTROPHILS PERCENT AUTO 55 % (41-73); Platelet Count 518 K/mm3 (150-400); RDW Coefficient Variation 17.6 % (11.7-14.2); RDW Standard Deviation 52.6 fL (35.1-46.3); Red Blood Cell Count 4.02 M/mm3 (3.80-5.20)
[2020-09-25 05:13] LABS: Albumin, Blood 2.5 g/dL (3.4-5.0); Anion Gap 8 mmol/L (6-16); Blood Urea Nitrogen 6 mg/dL (8-24); Bun/Creatinine Ratio 10.6 (12.0-20.0); CO2, Blood 27 mmol/L (21-32); Calcium, Blood 8.7 mg/dL (8.5-10.1); Chloride, Blood 103 mmol/L (98-108); Creatinine, Blood 0.57 mg/dL (0.40-1.00); Glomerular Filtration Rate >60 (60-); Glucose, Blood 108 mg/dL (70-99); Phosphorus, Blood 1.4 mg/dL (2.5-4.9); Potassium, Blood 3.3 mmol/L (3.5-5.5); Sodium, Blood 138 mmol/L (136-145)
--- NOTE | 2020-09-25 07:35 | NUR ---
*0600* TELE CALLED AND INFORMED PT SUSTAINING HRT RATE IN 160'S AND WAS VT. PT GIVEN SCHEDULED LOPRESSOR W/ NO CHANGE IN RATE. EKG PERFORMED AND DR WESTON CALLED. EKG SHOWED A-FIB W/ RVR @ 180'S. PT WAS COMPLAINING ONLY OF ABD DISCOMFORT. RAPID WAS CALLED AND DR WESTON ORDERED CARDIZEM AND ADDITIONAL POTASSIUM INFUSION. PROVIDER ORDERED TO CALL DAYTIME PROVIDER IF HRT RATE DOES NOT DECREASE BELOW 150'S AND CONSIDER TRANSFERRING PT TO HIGHER LEVEL OF CARE. PASSED ON INFO TO DAY RN.
--- NOTE | 2020-09-25 08:26 | NUR ---
@ ONSET OF SHIFT NOC RN FINISHING UP RAPID RESPONSE R/T AFIB RVR. STATE PT HAS BEEN GIVEN IV CARDIAZEM 1OMG. STATE TELE MX REPORT HR IMPROVE FROM 180'S TO 150'S. STATE NOC HOSPITALIST NOT TRANSFER TO ICU, WE ARE TO CALL IF HR DOES NOT IMPROVE. @ 0800 TELE MX REPORT HR CONTINUES AFIB RVR, HAS INCREASED BACK TO 180'S. SURVEY CAD TECHNICIAN NOTIFIED, CALL DR FRYE, HE STATE TRANSFER TO ICU & PLACE ON CARDIAZEM GTT. PT IS WEAK/FATIGUED HOWEVER ORIENT X3, REASSURANCE PROVIDED, SHE IS CALM & VERBALIZES UNDERSTANDING. NPO/ST, ORAL CARE PROVIDED.
--- NOTE | 2020-09-25 10:21 | NUR ---
PT TRANSFERED TO ICU 3, REPORT TO KAYLEE RICHARD CORPORATE ATTORNEY.
--- NOTE | 2020-09-25 10:22 | NUR ---
ARRIVAL TO ICU 0902- PT ARRIVES FROM MEDICAL FLOOR TO ICU AT THIS TIME. PT DROWSY WITH FLAT AFFECT, BUT IS ABLE TO FOLLOW COMMANDS APPROPRIATELY AND IS A/O X3. HR 170-210, APPEARS TO BE AFIB WITH RVR. MD FRYE NOTIFIED AND AT BEDSIDE SHORTLY AFTER PT ARRIVAL TO ROOM. EKG COMPLETED AT ARRIVAL. POTASSIUM REPLACEMENT INFUSING AT ARRIVAL. MAGNESIUM AND K PHOSPHATE REPLACEMENT STARTED SHORTLY AFTER ARRIVAL. DILTIAZEM GTT STARTED AT 10 MG/HR AT 1000. GTT INCREASED TO 15 MG/HR BP IS STABLE. PT CONVERTED BACK TO NSR AT 0945. WILL NOTIFIY . SPO2 98% ON 2L NC. WILL CONTINUE TO MONITOR.
--- NOTE | 2020-09-25 11:00 | NUR ---
SUMMARY OF MULTIPLE CASE CONFERENCES, WITH MEDICAL FLOOR NURSES, ICU NURSE, DR GUIDO & CM, FAMILY CONFERENCE BY PHONE AND COMFORT CARE VISIT TO PT IN ICU. I was contacted by medical floor charge out clerk and this am re: concerns for pt's lack of safe swallow and need to identify goals of care. Pt had tachycardia this am and was transferred to PCU status in ICU. Palliative care attempted to reach pt's family yesterday to review goals & discuss advanced care planning but had been unable to. I spoke with COKE CRANE OPERATOR, and and contacted pt's nephew, Garo and niece Yun after full review of EMR. Current issues and concerns for pt's ability to maintain adequate nutrition to sustain her discussed, inability to take PO medications to control HR and treat chronic illnesses discussed. Goals and options for care, comfort care, hospice care at home all reviewed with pt's family. They request that pt be transitioned to comfort care at this time. I contacted and pt's RN with family decision. Orders for comfort care obtained and entered. I saw pt in ICU twice. Both times pt was sleeping and I did not note any nonverbal indicators of pain, distress, dyspnea or agitation. Pt has longstanding ES dementia and had been on hospice previously. She did well and was released from hospice approx 1 year ago. Her inability to swallow may have been present for some time as family report pt barely eats in recent months but they were not aware that she could not safely swallow until today. They do not desire heroic measures or a feeding tube. I spoke with TATO re: possible dc planning for hospice care at home in the next 1-2 days and entered a hospice order per comfort care order set. I do not know which agency saw Andrew in the past. Family planned to come in to see pt and spend time with her this afternoon. Informed that she may be moved back to medical floor if an appropriate room became available. Garo verbalized understanding of our conversation.
--- NOTE | 2020-09-25 11:38 | NUR ---
COMFORT CARE 1125 - PT TRANSITIONED TO COMFORT CARE AT THIS TIME. ORDERS PLACED BY PALLIATIVE CARE AFTER SPEAKING WITH FAMILY. DILTIAZEM GTT AND ELECTROLYTE REPLACEMENT STOPPED AT THIS TIME. PT GIVEN MORPHINE 10 MG SUBLINGUAL FOR PAIN. INCENDIARY POWDER MIXER OFF. PT COMFORTABLE. WILL CONTINUE TO MONITOR.
--- NOTE | 2020-09-25 13:11 | NUR ---
FAMILY AT BEDSIDE PTS NEICE AT BEDSIDE. SHE BROUGHT PT FOOD AND DR. CARRION, WHICH PT IS REQUESTING TO DRINK. PT SITTING UPRIGHT SIPPING ON DR. CARRION. ATIVAN 1 MG PO GIVEN. WILL MONITOR.
--- NOTE | 2020-09-25 16:35 | NUR ---
REASSESSMENT FAMILY AT BEDSIDE. PT STATES SHE IS COMFORTABLE AND WANTS HER LIGHTS OFF. WILL CONTINUE TO MONITOR.
--- NOTE | 2020-09-25 18:05 | NUR ---
TRANSFER REPORT CALLED TO MICA GALLEGOS RN. PT TRANSFERRED BY BED TO ROOM 330 AT 1750. BRIEF CHANGED WITH RNS AT ARRIVAL.
--- NOTE | 2020-09-25 18:21 | NUR ---
ICU TRANSFER- PT ARRIVED TO ROOM 330 VIA BED FROM ICU. PT AWAKE, DENIES ANY COMPLAINTS. PT A 3 PERSON SLIDE INTO BED. ATTENDS CHANGED, PT REPOSITIONED AND REQUESTED TO GO BACK TO SLEEP. WET COUGH NOTED, SUCTION SET UP AT BEDSIDE. BED ALARM PLACED AND CALL LIGHT IN REACH. PT COMFORT CARE STATUS. WILL REPORT TO NIGHT RN.
--- NOTE | 2020-09-26 04:34 | NUR ---
AIRCRAFT MANAGER SUMMARY Andrew had a quiet and peaceful night waking only in early evening for a drink of soda or juice, and later for position changes and or incontinence. Roxynol given only once during the shift for comfort.
--- NOTE | 2020-09-26 04:52 | NUR ---
STUDENT RECRUITER SUMMARY Andrew slept well beginning around 2300. She was constantly thirsty each time we went in, however no matter how we tried, she couldn't tuck her chin, and each time, she would choke furiously. She did a little better when we picked nectar thick juices and thickened Dr. Pepper. She still needs observation when drinking. Minimal pain overnight. will continue to monitor for comfort.
--- NOTE | 2020-09-26 07:48 | NUR ---
AM ASSESSMENT- PT LYING IN BED, APPEARS COMFORTABLE. AWAKES TO VERBAL STIMULI. PT REPORTS PAIN TO BILAT ARMS, PRN ROXANOL GIVEN. LS DIMINISHED WITH SOME COARSENESS, ON RA, NO COUGH NOTED AT THIS TIME. HRR BUT TACHY. IV X2 IN PLACE. DNR WRISTBAND TO RIGHT WRIST. PT COMFORT CARE STATUS AT THIS TIME.
--- NOTE | 2020-09-26 17:06 | NUR ---
SHIFT SUMMARY- PT COMFORT CARE STATUS. PT MEDICATED X2 FOR GENERALIZED PAIN. LS DIMINISHED WITH OCCASIONAL COARSENESS, ON RA. PT NOTED TO BE COUGHING WITH EVERY DRINK, ATTEMPTED TO TRY HONEY THICK LIQUIDS BUT PT CONT TO COUGH. BOTH FAMILY AND PT EDUCATED ON RISK OF THIS. ORAL SUCTIONING COMPLETED. FAMILY AT BEDSIDE T/O THE DAY. HRR BUT TACHYCARDIC. INCONT OF URINE. PT EATING SMALL BITES OF FOOD, NEEDS ASSISTANCE. NO OTHER ACUTE CHANGES THIS SHIFT.
--- NOTE | 2020-09-27 05:32 | NUR ---
ASSISTANT PROFESSOR OF RELIGION SUMMARY Andrew is speaking out for her needs more overnight. twice she called to get a drink, and twice for pain medication. Never would she ask for it when we were with her in the room. Still no stool results for the second day from the bisacodyl suppositories. Overall, Andrew appears to be comfortable and relaxed to sleep and rest at night
--- NOTE | 2020-09-27 07:15 | NUR ---
AM ASSESSMENT- PT LYING IN BED, RESTING COMFORTABLY. RESP E/U, LS DIMINISHED WITH SOME MILD COARSENESS. SUCTION SET UP AT BEDSIDE. HR TACHY. PT COMFORT CARE STATUS. IV X2. DNR WRISTBAND IN PLACE.
--- NOTE | 2020-09-27 11:20 | NUR ---
pt comfortable and resting no grimace of dyspnea. Review of needs and symptom managment with nursing.
--- NOTE | 2020-09-27 13:57 | NUR ---
PT NIECE AT BEDSIDE, UPDATE GIVEN TO HER. SHE REPORTS THEY ARE WORKING ON GETTING PT TO [facility]. PT SLEEPING AT THIS TIME, APPEARS COMFORTABLE.
[2020-09-27] MEDS ORDERED: MORP20L SL (16:13)
[2020-09-27] MEDS ORDERED: Ativan1 MG PO (16:14)
[2020-09-27] MEDS ORDERED: ATROPINE SULFATE2 M1 SL (16:14)
[2020-09-27] MEDS ORDERED: BISA10S PR (16:14)
[2020-09-27] MEDS ORDERED: TRANSDERM-SCOP1 EAC3 TOP (16:15)
--- NOTE | 2020-09-27 16:46 | NUR ---
SHIFT SUMMARY- PT COMFORT CARE PT. PT MEDICATED X2 WITH 10MG ROXANOL, PT HAS APPEARED COMFORTABLE T/O THE DAY. LS DIMINISHED WITH SOME COARSENESS, MOIST OCCASIONAL PRODUCTIVE COUGH, SUCTION DONE. PT COUGHING WITH DRINKS AND FOOD, PT WITH LITTLE ORAL INTAKE. INCONT OF URINE. FAMILY IN TODAY TO VISIT WITH PT. PLAN TO D/C TOMORROW AM TO [facility], COVID SCREEN NEEDS TO BE DONE AT 0600. NO OTHER ACUTE CHANGES THIS SHIFT.
--- NOTE | 2020-09-28 06:27 | NUR ---
SHIFT SUMMARY PATIENT ALERT AND ORIENTED OVERNIGHT. WAS MEDICATED TWICE FOR PAIN, BUT OTHERWISE WAS ABLE TO SLEEP WELL. COVID SWAB OBTAINED AND SENT TO THE LAB. IVS PATENT AND FLUSHED. BED IN LOWEST POSITION WITH WHEELS LOCKED AND ALARM ON. CALL LIGHT WITHIN REACH. REPORT GIVEN TO ONCJUAN DEL CID.
[2020-09-28 07:29] LABS: Influenza A, PCR Negative (NEGATIVE); Influenza B, PCR Negative (NEGATIVE); Resp Syncytial Virus, PCR Negative (NEGATIVE); SARS-Cov-2 (COVID-19) PCR, MMC Negative (NEGATIVE)
--- NOTE | 2020-09-28 10:37 | NUR ---
PT DISCHARGED PT DISCHARGED TO THE [facility]. TRANSPORT VIA AMBULANCE. REPORT GIVEN TO NURSE PHILIP AT THE [facility]. DENIES FURTHER QUESTIONS AT THIS TIME.
== END 2020-09-28 10:30 | disposition hospice, home (50) | DRG 871 ==
LOC: ER 11:50 → ERHOLD 11:51 → MEDS 18:57 → ICUE 09-25 08:52 → MEDS 09-25 17:54
PROVIDERS: Emergency Medicine; Family Medicine; Hospitalist; ADMIT Internal Medicine
DX: A41.9 Sepsis, unspecified organism (principal); J69.0 Pneumonitis due to inhalation of food and vomit; C85.90 Non-Hodgkin lymphoma, unspecified, unspecified site; E87.1 Hypo-osmolality and hyponatremia; I47.1 Supraventricular tachycardia; Z23 Encounter for immunization; Z66 Do not resuscitate; Z51.5 Encounter for palliative care; Z20.828 Contact with and (suspected) exposure to other viral communicable diseases; D50.9 Iron deficiency anemia, unspecified; E78.00 Pure hypercholesterolemia, unspecified; E83.39 Other disorders of phosphorus metabolism; E83.42 Hypomagnesemia; E87.6 Hypokalemia; F03.90 Unspecified dementia, unspecified severity, without behavioral disturbance, psychotic disturbance, mood disturbance, and anxiety; F32.9 Major depressive disorder, single episode, unspecified; G89.4 Chronic pain syndrome; I48.0 Paroxysmal atrial fibrillation; J44.9 Chronic obstructive pulmonary disease, unspecified; K59.03 Drug induced constipation; R13.10 Dysphagia, unspecified; Z86.73 Personal history of transient ischemic attack (TIA), and cerebral infarction without residual deficits; I10 Essential (primary) hypertension; M19.90 Unspecified osteoarthritis, unspecified site; E03.9 Hypothyroidism, unspecified
CPT/HCPCS: 0241U; 36415; 51701; 71045; 74177; 80048; 80053; 80069; 81001; 82274; 83605; 83735; 84145; 85014; 85018; 85025; 87040; 92610; 93005; 93010; 96365-59; 96366; 96366-59; 96367; 96372; 96375; 96375-59; 96376; 99285-25; A9270; A9270-GY; C9113; G0008; G0378; J0360; J1956; J2212; J2405; J2765; J3475; J3480; J7030; J7060; Q2038; Q9967

== ENCOUNTER → 2020-12-10 | Outpatient (CLI) | payer OTHER ==
[~2020-12-10] MED LIST changes: +ACET325 PO; +ATROPINE SULFATE2 M1 SL; +Ativan1 MG PO; +BISA10S PR; +CARBONYL IRON45 MG PO; +FEROSUL325 M1 PO; +MIRALAX17 GM PO; +MORP15ER PO; +MORP20L SL; +ONDA4ODT MM; +Potassium Chlo20 ME1 PO; +TIZANIDINE HCL2 M4 PO; +TRANSDERM-SCOP1 EAC3 TOP
[2020-12-10 16:03] LABS: Appearance, Urine Cloudy (Clear); Bilirubin, Urine Neg (Neg); Blood, Urine 3+ (Neg); Color, Urine Yellow (P-Yellow); Glucose Qualitative, Urine Neg (Neg); Ketones, Urine Neg (Neg); Leukocyte Esterase, Urine 3+ (Neg); Nitrite, Urine Neg (Neg); Protein, Urine 2+ (Neg); Urobilinogen, Urine NORM (Normal)
[2020-12-10 16:11] LABS: Bacteria Many /hpf; Squamous Epithelial Cells Not Seen /hpf (Few); White Blood Cells, Urine TNTC /hpf (0-5)
== END | disposition home or self-care (01) ==
LOC: LAB 15:07 → LAB SHORT 15:07
PROVIDERS: Internal Medicine Hematology & Oncology
DX: N39.0 Urinary tract infection, site not specified (principal)
CPT/HCPCS: 81001; 87077; 87086; 87186